=== PATIENT | female | born 1930 | race Caucasian/White ===

== ENCOUNTER 2019-01-20 07:28 | Emergency (ER) | payer MEDICARE ==
[~2019-01-20] VITALS: Ht 162.6 cm; Wt 62.1 kg
[2019-01-20 07:30] VITALS: BP 130/56
--- NOTE | 2019-01-20 07:30 | NUR ---
BIBA BLS, PT PLACED IN BED 9
[2019-01-20] MEDS ORDERED: LORazepam 2 MG/ML VIAL IM ONE (08:10)
[2019-01-20] MEDS ORDERED: FOLI1TAB90 PO (08:12)
[2019-01-20] MEDS ORDERED: ACET-9800 PO (08:12)
[2019-01-20] MEDS ORDERED: LIDO1ADH19 TP (08:12)
[2019-01-20] MEDS ORDERED: LID5T TP (08:12)
[2019-01-20] MEDS ORDERED: CALC-784 PO (08:12)
--- NOTE | 2019-01-20 08:30 | NUR ---
BIBA W C/O L LEG PAIN S/P MECHANICAL FALL APPROX. 45 MIN AGO TODAY. PT IS A&O X 1, TO NAME. PT STATES SHE DOES NOT REMEMBER FALLING. PER EMS, PT IS AT BASELINE MENTAL STATUS. NO OBVIOUS DEFORMITY TO L LEG, NO SHORTENING OF LEG LENGTH. BED IN LOW POSITION, SIDE RAILS UP X2 FOR PT SAFTEY.
--- NOTE | 2019-01-20 08:57 | NUR ---
X-Ray at bedside.
--- NOTE | 2019-01-20 10:23 | NUR ---
PT ASLEEP IN BED, AROUSABLE TO VERBAL STIMULI
--- NOTE | 2019-01-20 10:25 | NUR ---
PER JEFFREY BARDALES, TRANSPORTATION NOT AVAILABLE ON WEEKENDS FOR PT.
--- NOTE | 2019-01-20 11:14 | NUR ---
# 14 FR in/out catheter utilizing sterile technique. Immediate return of 600 ml yellow urine noted. Pt tolerated procedure well.
--- NOTE | 2019-01-20 11:30 | NUR ---
PT ASLEEP IN BED, AROUSABLE TO VERBAL STIMULI. NO NEW NEEDS AT THIS TIME.
[2019-01-20 13:11] VITALS: BP 150/81
--- NOTE | 2019-01-20 13:16 | NUR ---
Patient discharged with v/s stable. Written and verbal after care instructions given and explained. Patient verbalized understanding. Ambulance Transport with to [facility]. All questions addressed prior to discharge. Advised to follow up with PMD.
== END 2019-01-20 13:16 ==
LOC: MED 07:28
DX: S70.02XA Contusion of left hip, initial encounter (principal); R33.9 Retention of urine, unspecified; M19.90 Unspecified osteoarthritis, unspecified site; F03.90 Unspecified dementia, unspecified severity, without behavioral disturbance, psychotic disturbance, mood disturbance, and anxiety; G30.9 Alzheimer's disease, unspecified; Z79.899 Other long term (current) drug therapy; W18.30XA Fall on same level, unspecified, initial encounter; Y93.89 Activity, other specified; Y92.89 Other specified places as the place of occurrence of the external cause; Y99.8 Other external cause status
CPT/HCPCS: 72192; 73552; 96372; 99284; J2060; Q0092; C1758